=== PATIENT | female | born 1975 | race Hispanic/Latino ===

== ENCOUNTER 2018-05-17 08:12 | Day surgery (SDC) | payer OTHER ==
[2018-05-17 08:21] LABS: Absolute Lymphocytes (CBC) 1.2 K/uL (0.7-4.9); Absolute Monocytes 0.5 K/uL (0.1-1.3); Absolute Neutrophil 3.6 K/uL (1.8-8.0); Basophils % 0.3 % (0-1.3); Eosinophils % 2.3 % (0-4.4); Hematocrit 41.2 % (36.0-45.0); Lymphocytes % 21.7 % (15.3-44.8); MPV 6.8 fL (7.6-11.3); RBC Red Blood Cell Count 4.76 M/uL (3.86-4.86)
[2018-05-17 08:22] LABS: Urine Appearance CLOUDY; Urine Bilirubin NEGATIVE (NEG); Urine Blood NEGATIVE (NEG); Urine Color YELLOW; Urine Glucose NEGATIVE (NEG); Urine Protein NEGATIVE (NEG)
[2018-05-17 08:25] LABS: Urine Microscopic Reflex ORDER UMIC
[2018-05-17 08:41] LABS: Urine RBC <5 /HPF (NONE SEEN)
[2018-05-17 08:42] LABS: Urine Bacteria <20 /HPF (<20); Urine Culture Reflex Order REFLEXED; Urine Mucus 3+ /HPF (NONE SEEN)
[2018-05-17] MEDS ORDERED: Ringers Lactate 1,000 ML IV ONE ×3 (08:47→13:36)
[2018-05-17] MEDS ORDERED: CEFAZOLIN/SWI 1gm 1 GM/10 ML SYR ONE (08:47)
[2018-05-17] MEDS ORDERED: FENTANYL CITR 100 MCG/2 ML ONE ×3 (09:02→12:17)
[2018-05-17] MEDS ORDERED: PROPOFOL 200 MG/20 ML VIAL IV ONE (09:02)
[2018-05-17] MEDS ORDERED: MIDAZOLAM HCL 2 MG/2 ML INJ ONE (09:02)
[2018-05-17] MEDS ORDERED: ONDANSETRON 4 MG/2 ML VIAL ONE (09:03)
[2018-05-17] MEDS ORDERED: ROCURONIUM 50 MG/5 ML VIAL IV ONE ×2 (09:03→11:58)
[2018-05-17] MEDS ORDERED: LIDOCAINE 2% MPF 5 ML VIAL ONE (09:03)
--- NOTE | 2018-05-17 09:18 | RAD REPORT ---
EXAM DESCRIPTION: Marycarmen Hancock (2 Views)05/17/2018 8:10 am CLINICAL HISTORY: Preop for breast surgery COMPARISON: None FINDINGS: The lungs appear clear of acute infiltrate. The heart is normal size IMPRESSION: No acute abnormalities displayed
[2018-05-17] MEDS ORDERED: CEFAZOLIN SODIUM 1 GM/VIAL ONE (09:35)
[2018-05-17] MEDS ORDERED: GENTAMICIN SULF 80 MG/2ML INJ ONE (09:35)
[2018-05-17] MEDS ORDERED: NS 0.9% VIAL 20 ML ONE (09:35)
[2018-05-17] MEDS ORDERED: BACITRACIN 50000 UNIT VIAL ONE (09:36)
[2018-05-17] MEDS ORDERED: Mastisol Adhesive Liq ONE (09:36)
[2018-05-17] MEDS ORDERED: SCOPOLAMINE HYDROBROMIDE PATCH TD ONE (09:39)
[2018-05-17] MEDS ORDERED: EPHEDRINE SULF 50 MG/ML VIAL ONE (11:58)
[2018-05-17] MEDS ORDERED: MORPHINE 10 MG/ML VIAL ONE (12:02)
[2018-05-17] MEDS ORDERED: KETOROLAC 30 MG/ML INJ ONE (14:27)
[2018-05-17] MEDS: HYDROMORPHONE HCL 1 MG/ML INJ ONE ×2 (14:54→15:07)
[2018-05-17] MEDS ORDERED: HYDROMORPHONE HCL 1 MG/ML INJ ONE (15:22)
[2018-05-17] MEDS ORDERED: HYDROCODONE/APAP 10/325 TAB ONE (17:27)
--- NOTE | 2018-05-18 02:01 | OP ---
Date of Procedure: 05/17/2018 Surgeon: Alexander Butler MD Upper Cutter Out: Jose. Preoperative Diagnosis: Breast enlargement, descent. Postoperative Diagnosis: Breast enlargement, descent. Procedure Performed: Breast reduction. Anesthesia: General. Procedure In Detail: After satisfactory induction of general anesthesia, breasts were prepped with D uraPrep. Dry sterile drapes were applied in the usual manner. A 45 template was used to outline the areola. Then, transverse curvilinear incisions were made. The intervening skin was de-epithelializ ed with dermabrader and EpiCut. Scalpel was used to make the separate incision. The flap was thinne d to 1.5 cm, elevated towards the sternum, clavicle, and anterior axillary line. This was done on carina th sides. Then, the inferior incision was made. Then, inferior lateral excess breast tissue was exc ised with scalpel and electrocautery and then, the de-epithelialized flap formed into a cone with 2-0 PDS sutures. The straps were elevated on the right breast at 12 o'clock, 1:30, and 3 o'clock positi ons. Mirror image was done on the left. Straps were then woven in and out the pectoralis major musc le, back to the base of the cone, back to themselves and eventually tied themselves with 2-0 PDS. Th e 3 o'clock strap was sewn over the sternum at the 3 o'clock position. Left side was done in the franck ror image manner. Wounds were irrigated with antibiotic solution. A 10 LISSY was brought out to the ax illa, sewn in place with 2-0 silk. Wounds were closed in layers with 3-0 Vicryl, subcu with 3-0 PDS running subcuticular, tied in the vertical meridian of the breast. The patient was sat up. Site for new nipple-areolar complex was marked out. Tissue was cored out with a 45 template and nipples were delivered and sewn with interrupted 4-0 PDS followed by 4-0 PDS running subcuticular. Dressings con sisted of tincture of benzoin, Steri-Strips, 5x5s, fluffs, and Luis Miguel wrap. The patient tolerated the procedure well. The amount removed was 296 from the right, 278 from the left. CLAUDE/YESSICA Voice ID: [id number] Report ID: [id number]
--- NOTE | 2018-05-21 11:26 | EKG ---
Test Date: 2018-05-17 Test Time: 07:55:56 [place] Supervisor: MATTHEW MEASUREMENT RESULTS: Intervals: Rate: 55 RI: 148 QRSD: 100 QT: 436 QTc: 417 Spencer: P: 17 RI: 148 QRS: 21 T: 18 INTERPRETIVE STATEMENTS: Sinus bradycardia Otherwise normal ECG No previous ECG available for comparison Electronically Signed On 05-17-18 12:49:33 CDT by Michel Foster
== END 2018-05-17 18:05 | disposition home or self-care (01) ==
LOC: OR 08:12
PROVIDERS: ATTEND Specialist
PROC: 0HSXXZZ Reposition Left Nipple, External Approach (ICD-10-PCS; 2018-05-17)
PROC: 0HSWXZZ Reposition Right Nipple, External Approach (ICD-10-PCS; 2018-05-17)
PROC: 0H0V0ZZ Alteration of Bilateral Breast, Open Approach (ICD-10-PCS; principal; 2018-05-17 09:00)
DX: N64.81 Ptosis of breast (principal); N62 Hypertrophy of breast; N64.89 Other specified disorders of breast
CPT/HCPCS: 36415; 71046; 81003; 81015; 81025; 85025; 87086; 87088; 88305; 93005; J0690; J1170; J1580; J2250; J2405; J2704; J3010